=== PATIENT | female | born 1950 | race Caucasian/White ===

== ENCOUNTER → 2023-10-08 11:40 | Outpatient (REF) | payer MEDICARE, OTHER, SELFPAY | LOC: RAD 11:40 | PROVIDERS: ATTENDING PHYSICIAN Internal Medicine | DX: M17.11 Unilateral primary osteoarthritis, right knee (principal) | CPT/HCPCS: 73560 ==

== ENCOUNTER → 2023-11-30 10:25 | Outpatient (REF) | payer MEDICARE, OTHER, SELFPAY | LOC: HWRAD 10:25 | PROVIDERS: ATTENDING PHYSICIAN Internal Medicine Gastroenterology; FAMILY PHYSICIAN Internal Medicine Cardiovascular Disease | DX: K76.0 Fatty (change of) liver, not elsewhere classified (principal) | CPT/HCPCS: 76700 ==

== ENCOUNTER → 2023-12-18 10:13 | Outpatient (REF) | payer MEDICARE, MEDICAID, SELFPAY | LOC: RAD 10:13 | PROVIDERS: ATTENDING PHYSICIAN Internal Medicine | DX: M48.061 Spinal stenosis, lumbar region without neurogenic claudication (principal) | CPT/HCPCS: 72131 ==

== ENCOUNTER 2024-01-12 10:17 | Outpatient (RCR) | payer MEDICARE, OTHER, SELFPAY | END 2024-01-12 23:59 | disposition home or self-care (01) | LOC: RPT 10:17 | PROVIDERS: ATTENDING PHYSICIAN Internal Medicine Cardiovascular Disease | DX: M54.51 Vertebrogenic low back pain (principal); Z73.6 Limitation of activities due to disability | CPT/HCPCS: 97110; 97162 ==

== ENCOUNTER 2024-01-26 11:21 | Day surgery (SDC) | payer MEDICARE, OTHER, SELFPAY ==
[2024-01-26] VITALS (10 sets, daily range): BP systolic 104–129; BP diastolic 43–78; BMI 32.0
--- NOTE | 2024-01-26 10:03 | HPS.HSE ---
Addendum entered and electronically signed by Mainor Patel MD 01/26/24 12:43:
73 yo female with prior ID and OM1 stent 2020, hyperlipidemia developed chest pain during stress test today. She reported left chest pain, and left arm pain and numbness during exercise. 1mm ST depression was noted. The test was stopped. Pain
persisted, and she was given ASA 324mg and SL nitro. We then transported her to the ED for eval. Exam with RRR, no murmurs, no edema. TnI <0.012. EKG in ED: ST depression has resolved.
Chest pain, concern for ACS/unstable angina. s/p ASA. 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
Original Note:
Family Physician
-
Family Physician: Steven Ortiz MD
Chief Complaint
-
chest discomfort and shortness of breath
History of Present Illness
73 y/o female with CAD with hx NSTEMI s/p stent to OM1 06/04/20, HLD, preDM, JACLYN (did not tolerate CPAP), GERD, endometrial cancer s/p DIAN/BSO who recently came to our office and reported chest discomfort (pressure) and CASTELLON for several months.
Nuclear stress test was ordered. She was having that stress test today and developed the chest discomfort with EKG changes. She was given full dose aspirin, as well as SL nitro, and sent to the ER. Currently CP free and in no distress.
Medical History
Past Medical History
Past Medical History: Reports CAD, Cancer, Hypercholesterolemia and Other (as above)
Past Surgical History: Reports Other (cataract surgery)
Social History
Tobacco: Non-smoker
Family History
Family History: CAD (mom, dad, brother)
Allergies / Home Medications
Allergies reflects when Allergies were last updated in [employer].
Home Medications with original date entered in [employer]
Allergy/Medication List:
Allergies: PCN
Medications:
aspirin 81 mg PO daily
calcium 500 mg daily PO
Magnesium 100 mg PO daily
Nitro SL 0.4 mg PRN
omega 3 1000 mg PO daily
Protonix 40 mg PO daily
atorvastatin 20 mg PO daily
Synthroid 112 mcg PO daily
Metoprolol XL 25 mg PO daily
vitamin D 50 mcg PO daily (1999 [place])
zinc 50 mg PO daily
Review of Systems
-
History Source: Patient
A 12 point ROS was completed and negative except as noted: Yes
Respiratory: Reports Trouble Breathing
Cardiac: Reports Chest Pain
Physical Exam
Vital Signs
126/75 BP, HR 94 BPM, RR 18, temp 97.9
Physical Exam
General: Well Developed and No Apparent Distress
HEENT: NormoCephalic and Anicteric
Respiratory: Clear and Non Labored Respirations
Cardiac: Regular Rhythm
Skin: Warm and Dry
Neuro: AO x 3
Laboratory Results
-
awaiting labs
Data Reviewed
-
Medical Tests (Nuc Med, Echo, EKG etc): Image Personally Visualized and interpreted (EKG NSR 94 BPM, non specific T abnormalities) and Report Reviewed by me (echo 08/06/22: Normal left ventricular systolic function. Left ventricular ejection fraction
is 65% by visual assessment. Mild tricuspid regurgitation. Estimated pulmonary artery pressure of 25-28 mmHg. )
Lab Data: Other (labs are pending)
Old Records: Reviewed (Dr. Patel OV note 01/19/24: CASTELLON and chest discomfort reported- stress test ordered)
Impression/Plan
-
IMPRESSION/PLAN:
ACS:
-this diagnosis is threat to life
-full dose ASA given at stress test, SL nitro given and now CP free
-start IV heparin, which requires intensive monitoring
-follow trops and EKG's
-cardiac cath today
-check lipids and hgbA1C
CAD with hx stenting:
-continue ASA, statin, BB
-eval as above
Dyslipidemia:
-update lipids
-patient has been taking atorvastatin 20 mg daily, but at last OV, plan to change to rosuvastatin 20 mg daily- will adjust here
GERD:
-continue PPI
--- NOTE | 2024-01-26 10:52 | ED.GENMED ---
History of Present Illness
General
Chief Complaint: Chest Pain
Source: patient
Exam Limitations: none
Time Seen by Provider: 01/26/24 10:42
History of Present Illness
History of Present Illness:
See MDM
Past History
Past History
ED Past Medical History: Asthma and Other (COVID in March 2020); Negative HTN, Hypercholesterolemia or NIDDM
ED Past Surgical History: Orthopedic (right arm surgery)
Social History
Tobacco: Non-smoker
Alcohol: None
Personal:
Living: with family
Phy Exam
Physical Exam
Physical Exam:
See MDM
Scores
Heart Score for Chest Pain Patients
STEMI patient?: No
History: Highly Suspicious
ECG: Nonspecific Repolarization
Age: >/= 65 years
Risk Factors: >/= 3 Risk Factors or History of CAD
Troponin: </= Normal Limit
Heart Score for Chest Pain Patients: 7
Heart Score Risk: 72.7 % MACE over next 6 weeks
Course
Orders/Labs/Results
Orders:
Orders
01/26/24 Lunch
Cholesterol Lowering
Cholesterol Lowering: Sodium, 2 Gram
NPO
Allow oral meds: Yes
Allow clear liquids: No
01/26/24 10:02
Electrocardiogram (*1) Urgent
Reason for Study: Chest Pain
EKG- Treatment ONCE
01/26/24 10:51
Admit/Transfer Patient As Directed
Co-Sign Provider:
Level of Care: Inpatient admission
Assign to:: IVU
Physician / Group: Dr. Patel
Diagnosis: ACS
Reason for Hospitalization: ACS
Expected length of stay greater than two midnights?: Yes
ELOS- Estimated Length of Stay in days: 3
I certify the patient meets the requirements for IP care: Yes
01/26/24 11:00
Heparin 4,000 units IV NOW STA
Heparin 62506 Units/250 ml 25,000 units in 250 ml IV PER PROTOCOL
Weight to be used for heparin protocol in kilograms (kg):: 84.6
Protocol:: Cardiac Tx/Acute Coronary
PTT Goal Range to be used:: PTT 73 to 111 seconds
Order type:: Initial
INITIAL Infusion Dose (UNITS/KG/hr) & then follow protocol:: 12 units/kg/hr
Infusion Dose in UNITS/hr & then follow protocol (UNITS/hr):: 1,000
INFUSION RATE in mL/hr & then follow protocol (mL/hr):: 10
PTT less than or equal to 64 seconds:: Increase rate by 200 units/hr (+ 2 mL/hr)
PTT 64.1 to 72.9 seconds:: Increase rate by 100 units/hr (+ 1 mL/hr)
PTT 73 to 111 seconds:: Target Range. No change in rate.
PTT 111.1 to 130.9 seconds:: Decrease rate by 100 units/hr (- 1 mL/hr)
PTT 131 to 199.9 seconds:: HOLD for 1 hr. Then decrease rate by 200 units/hr (- 2 mL/hr)
PTT greater than or equal to 200 seconds:: HOLD for 2 hrs & Notify Provider. Then decrease by 200 units/hr (-
2 mL/hr)
Lab follow-up:: Each change, PTT q6h until 2 consecutive are therapeutic. Then PTT
daily.
Nursing to Place Non Medication Order As Directed
Physician Order: PTT 6 hours after initial start of Heparin infusion
01/26/24 11:05
Complete Blood Count/With Diff Urgent
Comprehensive Metabolic Panel Urgent
Glycohemoglobin (HgbA1c) Urgent
PTT Urgent
Prothrombin Time Urgent
Troponin I Urgent
01/26/24 11:34
Verapamil Injectable [Isoptin/Verapamil Injection] 5 mg .ROUTE .STK-MED ONE
01/26/24 11:35
Fentanyl Citrate/Pf [Sublimaze] 100 mcg .ROUTE .STK-MED ONE
Heparin 10,000 units .ROUTE .STK-MED ONE
Heparin 1000 Units/500 ml [Heparin] 1,000 units in 500 ml .ROUTE .STK-MED
Heparin 81602 Units/250 ml 25,000 units in 250 ml .ROUTE .STK-MED
Lidocaine HCl/Pf [Xylocaine-Mpf 1% Vial] 50 mg .ROUTE .STK-MED ONE
Midazolam HCl [Versed] 2 mg .ROUTE .STK-MED ONE
Nitroglycerin [Tridil] 1,500 mcg .ROUTE .STK-MED ONE
01/26/24 12:48
Heparin 1000 Units/500 ml [Heparin] 1,000 units in 500 ml .ROUTE .STK-MED
01/26/24 12:59
Acetaminophen [Tylenol] 650 mg PO Q4HPRN PRN
01/26/24 13:00
0.9% Sodium Chloride 1000 ml [Nss] 1,000 ml IV 100 mls/hr
Activity As Directed
Activity Level: Out of Bed- Chair
Comment: bed/chair rest for 2 hours then out of bed ad issa
Chain Maker Procedure As Directed
Cardiac Cath Procedure: percutaneous coronary intervention
Intake/ Output As Directed
Frequency: Per unit guidelines
Notify MD As Directed
Notify physician if: immediately for chest pain or bleeding from access site(s)
Radial Artery Hemostasis Method As Directed
Instructions:: 3 mL out at 2 hour posts placement of band
3 mL out at 2 1/2 hours post placement of band
3 mL out at 3 hours post placement of band
Off at 3 1/2 hours post placement of band
If any oozing or hemotoma occurs:: re-inflate band and call provider
Site Checks As Directed
Check access site for bleeding/hematoma: Yes
Comment: on arrival, Q15min x4, Q30min x2, Q1 hr x2, Q2 hr x2, Q4 hr or per
protocol
Vascular Checks As Directed
Location: distal to access site - pulse check
Frequency: Other
Comment: on arrival, Q15min x4, Q30min x2, Q1 hr x2, Q2 hr x2, Q4 hr or per protocol
Vital Signs As Directed
Frequency: Other
Additional Instructions:: on arrival, Q15min x4, Q30min x2, Q1 hr x2, Q2 hr x2, then Q4 hr or per unit
protocol
01/26/24 13:08
Nitroglycerin Sublingual [Nitrostat (Sublingual)] 0.4 mg SL [id number] PRN
01/26/24 13:08
Case Management Consult ONCE
Case Management Consult: Discharge Planning
Activity As Directed
Activity Level: Bathroom Privileges
With Assistance
INT (Intravenous Needle Therapy) As Directed
Comment: maintain peripheral IV access
Intake/ Output As Directed
Frequency: Per unit guidelines
Vital Signs As Directed
Frequency: q4h
Weight As Directed
Frequency: Once
DX Deep Vein Thrombosis Video Routine
01/26/24 13:39
Level of Care Change As Directed
Level of Care: Post Proc/Surg Recovery
Reason for Overnight Stay: Other
Other Reason for Overnight Stay: outpatient procedure, d/c home from matlab developer, never admitted to IVU
01/26/24 13:40
Discharge Patient As Directed
Discharge patient after: 5pm
Month Pneumococcal vaccine administered: November
Year Pneumococcal vaccine administered: 2019
01/26/24 14:00
Flush (0.9% Sodium Chloride) [Flush (Nss)] See Dose Instructions IV PER PROTOCOL
01/26/24 18:00
Metoprolol Xl [Toprol Xl] 25 mg PO QPM
Rosuvastatin Calcium [Crestor] 40 mg PO QPM
magnesium oxide 400 mg PO QPM
01/26/24 20:00
Pantoprazole [Protonix] 40 mg PO BID
01/27/24 08:00
Ascorbic Acid [Vitamin C] 500 mg PO DAILY
Aspirin Low Dose EC [Aspir Low (Enteric Coated)] 81 mg PO DAILY
Calcium Carbonate [Oscal Dereck 500] 1,250 mg PO DAILY
Levothyroxine [Synthroid] 112 mcg PO DAILY
Abnormal Lab Results
01/26/24 01/26/24
11:05 12:34
WBC 4.5 L 10^3/uL
(4.8-10.8)
RBC 4.13 L 10^6/uL
(4.20-5.40)
Hct 36.3 L %
(37.0-47.0)
MPV 11.2 H fL
(7.4-10.4)
Eosinophils % 8.4 H %
(0-6)
Glucose 101 H mg/dl
(70-99)
Hemoglobin A1c 5.9 H %
(4.0-5.6)
POC ACT Low Range > 397 H Seconds
(116-155)
01/26/24 11:05
01/26/24 11:05
Vital Signs
Initial and Last Documented VS:
Initial Vital Signs
Temp Pulse Resp BP Pulse Ox
97.9 F 94 18 126/75 97
01/26/24 10:10 01/26/24 10:10 01/26/24 10:10 01/26/24 10:10 01/26/24 10:10
Last Documented Vital Signs
Temp Pulse Resp BP Pulse Ox
97.9 F 78 15 126/76 98
01/26/24 10:10 01/26/24 17:00 01/26/24 17:00 01/26/24 16:01 01/26/24 17:00
MDM/Problems Addressed
Differential Diagnosis Includes:
HPI and MDM Narrative:
73-year-old female presenting from cardiology office for a failed stress test. Patient does have a history of coronary artery disease and does have a stent. She was following up on exertional dyspnea. Apparently, patient failed her stress test
and required aspirin and nitroglycerin in the office. She was sent to the emergency department for blood work, heparin drip and admit for catheterization later today. On arrival, patient states she is feeling better and denies any chest pain or
shortness of breath. EKG performed in triage shows no evidence of STEMI
Physical exam
General: Well appearing and non-toxic
HEENT: protecting airway
Neck: appears supple
CV: No evidence of cyanosis. Regular rate and rhythm
Resp: No accessory muscle use. Lungs clear
Abd: Non-distended
Extremities: No deformities
Neuro: alert
Psych: Normal affect
Skin: Intact
Problems Addressed including Acute and Chronic Conditions affecting care:
1. NSTEMI
Acuity: acute
Prognosis: stable
Details: Given her history and failed stress test, will treat as NSTEMI with drip. Cardiology aware and will admit for catheterization
Differential Diagnosis (but not limited to): NSTEMI, spontaneous coronary artery dissection, in-stent stenosis
Testing considered: Chest x-ray
Drug therapy (if applicable): OTC meds, please see d/c instruction regarding Rx drugs
Amount and/or Complexity of Data Reviewed
Clinical info obtained from: Patient
External data reviewed: N/A
Labs I independently reviewed (but not limited to): trop normal
Radiology: N/A
Pulse Ox: not hypoxic
EKG independently reviewed: Sinus rhythm, normal axis, no STEMI
Tungsten Refiner: Sinus rhythm
Critical Care: The high probability of a clinically significant, sudden or life threatening deterioration of the cardiovascular system(s) required my full and direct attention, intervention and personal management. The aggregate critical care time
was 31 minutes. This time is in addition to time spent performing reported procedures but includes the following:
[x] Data Review and interpretation
[x] Patient assessment and monitoring of vital signs
[x] Documentation
[x] Medication orders and management
Risk of Complication:
Social Determinants of health: Good social support
Discussed with other providers: [employer]
Escalation of Care includes Admit/Obs: Given the concern for NSTEMI, will start heparin drip and admit
Occasional wrong word or 'sound a like' substitutions may have occurred due to the inherent limitations of voice recognition software. Read the chart carefully and recognize, using context, where substitutions have occurred.
*Critical Care Note
Total Time (30-74mins, 75-104mins- exclusive of procedures): 31 min
ED Attending Note
-
Portions of this chart may have been created with voice recognition software.� Occasional wrong word or��sound alike� substitutions may have occurred due to the inherent limitations of voice recognition software.
Discharge Plan
Departure
Patient Disposition: Admit
Date of Disposition: 01/26/24
Time of Disposition: 10:52
Admit to: orthodontic laboratory technician
Presentation/result/management discussed w/ accepting MD/DO: Cardiology
Discharge Problem:
Non-ST elevation OK (NSTEMI)
Interventions
Interventions:
*Risk Screen - Suicide Last Done: 01/26/24 11:06
*General Assessment Last Done: 01/26/24 11:06
*Neglect/Abuse Screening Last Done: 01/26/24 11:06
*Nursing Disposition Last Done: 01/26/24 11:35
ED- Cardiac Assessment Last Done: 01/26/24 11:08
Discharge Date and Time
Discharge Date/Time: 01/26/24 11:35
[2024-01-26 11:20] LABS: % Eosinophils 8.4 % (0-6); % Immature Granulocytes 0.4 % (0-0.5); % Lymphocytes 39.6 % (20.5-51.1); % Monocytes 6.9 % (1.7-9.3); % Neutrophils 42.7 % (42.2-75.2); Absolute Basophils 0.1 10^3/uL (0-0.2); Absolute Eosinophils 0.4 10^3/uL (0-0.7); Absolute Lymphocytes 1.8 10^3/uL (1.2-3.4); Absolute Monocytes 0.3 10^3/uL (0.1-0.6); Absolute Neutrophils 1.9 10^3/uL (1.4-6.5); Hematocrit 36.3 % (37.0-47.0); Hemoglobin 12.1 g/dL (12.0-16.0); Mean Corp Hgb Conc. 33.3 g/dL (33.0-37.0); Mean Corpuscular Hgb 29.3 pg (27.0-31.0); Mean Corpuscular Volume 87.9 fL (81.0-99.0); Mean Platelet Volume 11.2 fL (7.4-10.4); Nucleated Red Blood Cells % 0 %; Platelet Count 287 10^3/uL (130-400); Red Blood Cell Count 4.13 10^6/uL (4.20-5.40); Red Cell Dist. Width 13.5 % (11.5-14.5); White Blood Cell Count 4.5 10^3/uL (4.8-10.8)
[2024-01-26 11:27] LABS: ALT (SGPT) 14 U/L (0-35); AST (SGOT) 26 U/L (14-36); Albumin 4.4 g/dl (3.5-5.0); Alkaline Phosphatase 63 U/L (38-126); Blood Urea Nitrogen 16 mg/dl (7-17); Calcium 9.4 mg/dl (8.4-10.2); Carbon Dioxide 27 mmol/L (22-30); Chloride 106 mmol/L (98-107); Estimated Creatinine Clearance 59 ml/min; Glucose 101 mg/dl (70-99); Potassium 4.4 mmol/L (3.5-5.1); Sodium 142 mmol/L (135-145); Total Bilirubin 0.5 mg/dl (0.2-1.3); Total Protein 6.7 g/dl (6.3-8.2); eGFR > 60.00
[2024-01-26] MEDS: HEPARIN 4000 UNITS IV (11:28)
--- NOTE | 2024-01-26 11:32 | EDRN ---
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
verbal report given to Warp Tier MARGO Mcarthur via telephone at this time. [facility] programmer is ready for this pt
[2024-01-26 11:39] LABS: Troponin I < 0.012 ng/ml
[2024-01-26 11:48] LABS: INR 1.05; PT 13.7 Sec (11.4-14.6)
[2024-01-26 11:49] LABS: APTT 29.9 Sec (23.4-35.0)
--- NOTE | 2024-01-26 13:16 | ITS.CL.CATH ---
Respiratory Therapy Instructor - Catheterization
Cardiac Catheterization
Procedure Report:
CARDIAC CATHETERIZATION REPORT
Date of Procedure: 01/26/2024
Referring: Mainor Patel M.D., Ph.D.
INDICATION: Abnormal stress test, chest pressure.
PROCEDURE:
1. Left heart catheterization.
2. Coronary angiography.
3. Successful IFR of the proximal LAD.
4. Successful IFR of the mid RCA.
5. Successful IFR of OM1.
ACCESS:
6 [place]ian right radial artery.
CATHETERS:
1. 5 [place]ian JR4.
2. 5 [place]ian JL 3.5.
3. 6 [place]ian EBU 3.5 guiding catheter.
4. 6 [place] JR4 guiding catheter.
HEMODYNAMIC DATA
Weight (kg): 84.4
AO (s/d/x, mmHg): 123/72/96
LV (s/x mmHg): 126/16
LEFT VENTRICULOGRAPHY: Not performed.
CORONARY ANGIOGRAPHY
Dominance: Right.
Left Main: Normal size, bifurcating vessel. There is no coronary artery disease.
LAD: Normal size vessel giving rise to several small diagonals. There is a 50% lesion in the proximal LAD.
Ramus: Congenitally absent.
Circumflex: Normal size, nondominant vessel that is essentially 2 obtuse marginals and a vestigial AV groove branch. OM1 is a small to medium, 2 mm vessel with a 40-50% lesion in its proximal margin. OM 2 is a large vessel that supplies the
majority of the lateral wall. There is a patent stent in the proximal margin of OM 2.
RCA: Normal size, dominant vessel. There is a long, 40-50% lesion with at least moderate calcification in the proximal and mid vessel.
INTERVENTION(S)
1. Successful IFR of the 50% proximal LAD lesion demonstrating nonocclusive disease (IFR = 0.97).
2. Successful IFR of the long, 40-50% proximal/mid RCA lesion demonstrating nonocclusive disease (IFR = 0.96).
3. Successful IFR of the 40-50% proximal OM1 lesion demonstrating nonocclusive disease (IFR = 0.98).
Narrative:
The decision was made to perform physiologic testing. The diagnostic catheter was removed over a wire and exchanged for a(n) 6 Mal[place]ian EBU 3.5 guiding catheter. The guiding catheter was advanced into the ascending aorta and seated in the left main
coronary artery. Additional heparin was given to obtain an ACT greater than 250 seconds. An iFR wire was zeroed outside of the body, then inserted into the guiding sheath. The wire was advanced and the transducer was normalized just outside of the
guiding catheter tip. The wire was advanced into the mid LAD. Three iFR measurements were taken. The 50% proximal LAD lesion was determined to be nonocclusive (0.97).
We then turned our attention to the right coronary artery. The 6 [place]ian EBU 3.5 catheter was removed over a wire and exchanged for a(n) 6 [place]divian JR4 guiding catheter. The guiding catheter was advanced into the ascending aorta and seated in the
right coronary artery. Additional heparin was given to obtain an ACT greater than 250 seconds. An iFR wire was inserted into the guiding sheath. The wire was advanced and the transducer was normalized just outside of the guiding catheter tip. The
wire was advanced into the distal RCA. Three iFR measurements were taken. The lesion was determined to be nonocclusive (0.96).
We reviewed the angiography. Based on fairly convincing clinical story, the decision was made to IFR the obtuse marginal. The 6 Maldivian JR4 guiding catheter was removed over a wire and the 6 [place]ian EBU 3.5 guiding catheter was readvanced into the
ascending aorta and seated in the left main coronary artery. The iFR wire was inserted into the guiding sheath. The wire was advanced and the transducer was normalized just outside of the guiding catheter tip. The wire was advanced into the distal
OM1. Three iFR measurements were taken. The lesion was determined to be nonocclusive (0.98).
The IFR wire was pulled back into the guide. Nitroglycerin 100 mcg was given intracoronary for some very mild wire spasm in the first obtuse marginal. Final angiography was performed in orthogonal views demonstrating stable coronary artery disease
with no evidence of dissection or perforation. The IFR wire was withdrawn and the catheter was disengaged. The catheter was then removed over a standard J-wire.
Closure Device: Vascular band.
Radiation (mGy): 848.32
DAP (cm2.Gy): 65.2956
Fluoroscopy time (minutes): 11.9
Sedation time (minutes): 61
CONCLUSIONS
1. Right dominant circulation with a patent stent in the proximal margin of OM 2, a nonobstructive 40-50% lesion in the proximal margin of OM1 (IFR = 0.98), a long, nonobstructive 40-50% lesion in the proximal/mid RCA (IFR = 0.96) and a
nonobstructive 50% lesion in the proximal LAD (IFR = 0.97).
2. Mildly elevated filling pressures (LVEDP = 16 mmHg at 84.4 kg).
RECOMMENDATIONS:
1. Expectant management after cardiac catheterization via right radial approach.
2. Limited weight bearing on the right wrist for one week.
3. Up titration of medical therapy for microvascular disease/endothelial dysfunction. Start amlodipine 2.5 mg daily.
4. Continue aggressive secondary prevention with aspirin and high-dose, high potency statin.
5. Stable for outpatient follow-up.
Copy to: Mainor Patel M.D., Ph.D., Steven Ortiz M.D.
Sang Reyez DO, FACC, FACP
[2024-01-26 16:04] LABS: ACT-LR - POC > 397 Seconds (116-155)
[2024-01-27 09:19] LABS: Glycohemoglobin (HgbA1c) 5.9 % (4.0-5.6)
== END 2024-01-26 17:30 | disposition home or self-care (01) ==
LOC: CATH 11:21
PROVIDERS: ATTENDING PHYSICIAN Internal Medicine; EMERGENCY PHYSICIAN Student in an Organized Health Care Education/Training Program; FAMILY PHYSICIAN Internal Medicine
DX: I25.10 Atherosclerotic heart disease of native coronary artery without angina pectoris (principal); R07.9 Chest pain, unspecified; Z95.5 Presence of coronary angioplasty implant and graft; I25.2 Old myocardial infarction; K21.9 Gastro-esophageal reflux disease without esophagitis; J45.909 Unspecified asthma, uncomplicated; G47.33 Obstructive sleep apnea (adult) (pediatric); Z82.49 Family history of ischemic heart disease and other diseases of the circulatory system; Z79.82 Long term (current) use of aspirin
CPT/HCPCS: 93799 ×3; C1894; C1769; 78451; 80053; 83036; 84484; 85025; 85347; 85610; 85730; 93005; 93017; 93458; 96374; 99291; A9500; Q9967

== ENCOUNTER 2024-02-14 11:13 | Outpatient (RCR) | payer MEDICARE, OTHER, SELFPAY | END 2024-02-14 23:59 | disposition home or self-care (01) | LOC: RPT 11:13 | PROVIDERS: ATTENDING PHYSICIAN Internal Medicine Cardiovascular Disease | DX: M54.51 Vertebrogenic low back pain (principal); M25.562 Pain in left knee; Z73.6 Limitation of activities due to disability; M62.81 Muscle weakness (generalized); M48.07 Spinal stenosis, lumbosacral region; R26.89 Other abnormalities of gait and mobility | CPT/HCPCS: 97010; 97110; 97112; 97116; 97530 ==

== ENCOUNTER 2024-03-15 09:58 | Outpatient (RCR) | payer MEDICARE, OTHER, SELFPAY | END 2024-03-15 23:59 | disposition home or self-care (01) | LOC: RPT 09:58 | PROVIDERS: ATTENDING PHYSICIAN Internal Medicine Cardiovascular Disease | DX: M54.51 Vertebrogenic low back pain (principal); M25.562 Pain in left knee; Z73.6 Limitation of activities due to disability; M62.81 Muscle weakness (generalized); M17.12 Unilateral primary osteoarthritis, left knee; R26.89 Other abnormalities of gait and mobility | CPT/HCPCS: 97010; 97110; 97112 ==

== ENCOUNTER → 2024-06-08 07:19 | Outpatient (REF) | payer MEDICARE, OTHER, SELFPAY | LOC: RAD 07:19 | PROVIDERS: ATTENDING PHYSICIAN Podiatrist Foot & Ankle Surgery | DX: M20.11 Hallux valgus (acquired), right foot (principal) | CPT/HCPCS: 73630 ==

== ENCOUNTER → 2024-07-17 13:14 | Outpatient (REF) | payer MEDICARE, OTHER, SELFPAY | LOC: RAD 13:14 | PROVIDERS: ATTENDING PHYSICIAN Internal Medicine | DX: G47.33 Obstructive sleep apnea (adult) (pediatric) (principal); R06.02 Shortness of breath | CPT/HCPCS: 71046 ==

== ENCOUNTER → 2024-08-29 14:43 | Outpatient (REF) | payer MEDICARE, OTHER, SELFPAY | LOC: HWRAD 14:43 | PROVIDERS: ATTENDING PHYSICIAN Internal Medicine Critical Care Medicine | DX: J45.909 Unspecified asthma, uncomplicated (principal); R06.02 Shortness of breath | CPT/HCPCS: 71250 ==

== ENCOUNTER → 2024-12-27 11:46 | Outpatient (REF) | payer MEDICARE, OTHER, SELFPAY | LOC: HWRAD 11:46 | PROVIDERS: ATTENDING PHYSICIAN Internal Medicine Gastroenterology; FAMILY PHYSICIAN Internal Medicine | DX: K76.0 Fatty (change of) liver, not elsewhere classified (principal) | CPT/HCPCS: 76700 ==

== ENCOUNTER → 2025-02-26 08:39 | Outpatient (REF) | payer MEDICARE, OTHER, SELFPAY | LOC: HWRCS 08:39 | PROVIDERS: ATTENDING PHYSICIAN Internal Medicine; FAMILY PHYSICIAN Internal Medicine | DX: I25.10 Atherosclerotic heart disease of native coronary artery without angina pectoris (principal); R06.09 Other forms of dyspnea | CPT/HCPCS: 93306 ==

== ENCOUNTER → 2025-02-28 13:05 | Outpatient (REF) | payer MEDICARE, OTHER, SELFPAY | LOC: HWRAD 13:05 | PROVIDERS: ATTENDING PHYSICIAN Orthopaedic Surgery; FAMILY PHYSICIAN Internal Medicine | DX: M48.061 Spinal stenosis, lumbar region without neurogenic claudication (principal) | CPT/HCPCS: 72131 ==